=== PATIENT | female | born 1960 | race Caucasian/White ===

== ENCOUNTER → 2016-12-25 | Outpatient (CLI) | payer MEDICARE, MEDICAID ==
[2016-12-25 12:04] LABS: Urine Bilirubin Negative (Negative); Urine Blood Negative /uL (Negative); Urine Color Yellow (Yellow); Urine Glucose Normal (Normal); Urine Ketone Negative (Negative); Urine Nitrite Negative (Negative); Urine Urobilinogen Normal (Negative); Urine pH 5.5 (5.0-8.0)
== END | disposition home or self-care (01) ==
LOC: LAB 11:24
PROVIDERS: ATTEND Specialist
DX: N95.1 Menopausal and female climacteric states (principal)
CPT/HCPCS: 81003; 83001; 83002

== ENCOUNTER 2019-09-27 01:53 | Emergency (ER) | payer OTHER, MEDICAID ==
[~2019-09-27] VITALS: Ht 162.6 cm; Wt 59.0 kg
[2019-09-27 04:48] VITALS: BP 128/83
== END 2019-09-27 06:12 | disposition home or self-care (01) ==
LOC: ER 01:53
DX: J01.90 Acute sinusitis, unspecified (principal); B96.89 Other specified bacterial agents as the cause of diseases classified elsewhere; H57.11 Ocular pain, right eye; M19.90 Unspecified osteoarthritis, unspecified site; F17.210 Nicotine dependence, cigarettes, uncomplicated; Z88.6 Allergy status to analgesic agent; Z88.8 Allergy status to other drugs, medicaments and biological substances
CPT/HCPCS: 70486

== ENCOUNTER 2020-09-07 17:22 | Emergency (ER) | payer OTHER, MEDICAID ==
[~2020-09-07] VITALS: Ht 162.6 cm; Wt 53.5 kg
[2020-09-07 18:30] VITALS: BP 136/79
== END 2020-09-07 18:44 | disposition home or self-care (01) ==
LOC: ER 17:22
DX: K04.7 Periapical abscess without sinus (principal); F17.210 Nicotine dependence, cigarettes, uncomplicated; Z88.6 Allergy status to analgesic agent

== ENCOUNTER → 2024-07-11 | Outpatient (CLI) | payer OTHER, MEDICAID ==
[2024-07-11 12:21] LABS: Alanine Aminotransferase 12 U/L (7-40); Albumin 4.8 g/dL (3.2-4.8); Alkaline Phosphatase 50 U/L (46-116); Anion Gap 5 (5-15); Aspartate Aminotransferase 13 U/L (13-40); BUN/Creatinine Ratio 7.1 (10.0-20.0); Bilirubin, Total 0.3 mg/dL (0.2-1.0); Blood Urea Nitrogen 7 mg/dL (9-23); Calcium 9.7 mg/dL (8.7-10.4); Carbon Dioxide 23 mmol/L (20-31); Chloride 100 mmol/L (98-107); Glucose 89 mg/dL (74-106); Potassium 4.2 mmol/L (3.5-5.1); Sodium 128 mmol/L (136-145); Total Protein 6.8 g/dL (5.7-8.2)
[2024-07-11 12:26] LABS: Creatinine, Urine 36.78 mg/dL (30.0-125.0)
== END | disposition home or self-care (01) ==
LOC: LAB 11:36
PROVIDERS: ATTEND Internal Medicine
DX: C76.52 Malignant neoplasm of left lower limb (principal); E78.5 Hyperlipidemia, unspecified; R73.03 Prediabetes
CPT/HCPCS: 36415; 80053; 82043; 82570; 83036